=== PATIENT | female | born 1995 | race Caucasian/White ===

== ENCOUNTER 2018-01-20 15:14 | Inpatient (IN) ==
[2018-01-20] MEDS ORDERED: ZALEPLON 5 MG CAPSULE PO PRN (19:21)
[2018-01-20] MEDS ORDERED: ONDANSETRON 4 MG/2 ML VIAL IV PRN (19:21)
[2018-01-20] MEDS ORDERED: MORPHINE 4 MG/1 ML VIAL IV PRN (19:21)
[2018-01-20] MEDS ORDERED: ACETAMINOPHEN 325 MG TABLET PO PRN (19:21)
[2018-01-20] MEDS ORDERED: PROMETHAZINE 25 MG/1 ML VIAL IM PRN (19:21)
[2018-01-20] MEDS ORDERED: DEXTROSE 5% NACL 0.45% 1,000 ML IV SCH (19:30)
[2018-01-20] MEDS ORDERED: POTASSIUM CHLORIDE 20 MEQ TABLET PO ONE (19:41)
[2018-01-20] MEDS: metroNIDAZOLE INJ 500 MG in PREMIX 1 EACH IV SCH (20:00)
[2018-01-20] MEDS ORDERED: DEXT 5% LACT RING KCL 20 MEQ 20 MEQ/1,000 ML BAG IV SCH (20:00)
[2018-01-20] MEDS: methylPREDNISolone SOD SUC 40 MG/1 ML VIAL IV SCH (20:00)
[2018-01-20] MEDS ORDERED: ENOXAPARIN 40 MG/0.4 ML SYRINGE SUBCUT SCH (21:00)
[2018-01-20] MEDS: MESALAMINE ENEMA 4 GM/60 ML BOTTLE RECTAL SCH (22:56)
[2018-01-21] MEDS: LACTATED RINGERS 1,000 ML IV SCH ×5 (02:26→23:30)
[2018-01-21] MEDS: methylPREDNISolone SOD SUC 40 MG/1 ML VIAL IV SCH ×5 (02:27→20:42)
[2018-01-21 04:52] LABS: Basophils % 0.3 % (0.0-0.8); Hematocrit 31.5 VOL% (35.7-47.0); Hemoglobin 10.1 GM/DL (12.0-16.0); Immature Granulocytes % 0.5 %; Immature Granulocytes Absolute 0.07 #; Lymphocytes # 0.7 10*3/uL (1.4-4.0); Lymphocytes % 4.9 % (21.3-54.2); Mean Corpuscular HGB Conc 32.1 GM/DL (32-36); Mean Corpuscular Hemoglobin 24 PG (27-34); Mean Corpuscular Volume 75.5 FL (87-102); Mean Platelet Volume 12.7 FL (9.6-12.0); Monocytes # 0.6 10*3/uL (0.11-0.8); Monocytes % 4.4 % (1.7-12.7); Neutrophils # 12.6 10*3/uL (1.4-7.4); Neutrophils % 89.9 % (38.7-73.9); Platelet Count 322 T/CUMM (130-400); Red Blood Count 4.17 MC/CUMM (3.8-5.5); Red Cell Distribution Width 14.9 % (9.3-17.3)
[2018-01-21] MEDS: metroNIDAZOLE INJ 500 MG in PREMIX 1 EACH IV SCH ×3 (05:00→20:41)
[2018-01-21 05:28] LABS: Albumin 2.6 G/DL (3.4-5.0); Bilirubin,Total 0.5 MG/DL (0.2-1.0); Calcium 8.8 MG/DL (8.5-10.1); Osmolality,Calculated 280.3 MOS/KG (273-304); Potassium 4.3 MMOL/L (3.5-5.1); Total Protein 6.3 G/DL (6.4-8.3)
[2018-01-21 05:32] LABS: Band Neutrophils 10 % (0-10); Lymphocytes 6 % (20-55); Segmented Neutrophils 82 % (50-85); Total Cells Counted 100
[2018-01-21 05:34] LABS: Polychromasia Slight
[2018-01-21 05:36] LABS: Hypochromasia Slight
[2018-01-21 05:37] LABS: Platelet Estimate Adequate
[2018-01-21] MEDS: LEVOFLOXACIN INJ 750 MG in PREMIX 1 EACH IV SCH (08:16)
[2018-01-21] MEDS: PANTOPRAZOLE 40 MG TABLET PO SCH (08:16)
[2018-01-21] MEDS: MESALAMINE ENEMA 4 GM/60 ML BOTTLE RECTAL SCH (08:17)
[2018-01-21] MEDS ORDERED: WITCH HAZEL PADS 100/JAR TOP PRN (12:52)
[2018-01-21 14:23] LABS: % Iron Saturation 6.9 % (18-50); Ferritin 37.1 ng/ml (8-252)
[2018-01-21] MEDS: MESALAMINE 800 MG TABLET PO SCH ×3 (15:48→20:45)
[2018-01-22] MEDS: methylPREDNISolone SOD SUC 40 MG/1 ML VIAL IV SCH ×4 (02:30→20:30)
[2018-01-22] MEDS: metroNIDAZOLE INJ 500 MG in PREMIX 1 EACH IV SCH ×3 (03:53→20:32)
[2018-01-22 03:57] LABS: Basophils # 0.1 10*3/uL (0.0-0.2); Basophils % 0.2 % (0.0-0.8); Hematocrit 28.4 VOL% (35.7-47.0); Hemoglobin 9.2 GM/DL (12.0-16.0); Immature Granulocytes % 0.9 %; Immature Granulocytes Absolute 0.21 #; Lymphocytes # 1.1 10*3/uL (1.4-4.0); Lymphocytes % 4.8 % (21.3-54.2); Mean Corpuscular HGB Conc 32.4 GM/DL (32-36); Mean Corpuscular Hemoglobin 25 PG (27-34); Mean Corpuscular Volume 75.9 FL (87-102); Mean Platelet Volume 13.4 FL (9.6-12.0); Monocytes # 1.7 10*3/uL (0.11-0.8); Monocytes % 7.3 % (1.7-12.7); Neutrophils # 20.2 10*3/uL (1.4-7.4); Neutrophils % 86.8 % (38.7-73.9); Platelet Count 334 T/CUMM (130-400); Red Blood Count 3.74 MC/CUMM (3.8-5.5); Red Cell Distribution Width 15.2 % (9.3-17.3); White Blood Count 23.3 T/CUMM (4-12)
[2018-01-22 04:15] LABS: Alanine Aminotransferase 12 U/L (13-56); Albumin 2.3 G/DL (3.4-5.0); Alkaline Phosphatase 105 U/L (45-117); Aspartate Amino Transferase 9 U/L (0-37); Bilirubin,Total < 0.39 MG/DL (0.2-1.0); Blood Urea Nitrogen 8 MG/DL (7-18); Calcium 8.2 MG/DL (8.5-10.1); Glucose 113 MG/DL (74-106); Osmolality,Calculated 281.1 MOS/KG (273-304); Potassium 3.8 MMOL/L (3.5-5.1); Sodium 142 MMOL/L (136-145); Total Protein 5.6 G/DL (6.4-8.3)
[2018-01-22 06:44] LABS: Band Neutrophils 4 % (0-10); Lymphocytes 4 % (20-55); Platelet Estimate Normal; Segmented Neutrophils 87 % (50-85); Total Cells Counted 100
[2018-01-22] MEDS: LACTATED RINGERS 1,000 ML IV SCH ×3 (08:42→19:35)
[2018-01-22] MEDS: LEVOFLOXACIN INJ 750 MG in PREMIX 1 EACH IV SCH (08:44)
[2018-01-22] MEDS: MESALAMINE 800 MG TABLET PO SCH ×3 (08:44→20:34)
[2018-01-22] MEDS: PANTOPRAZOLE 40 MG TABLET PO SCH (08:44)
[2018-01-23] MEDS: methylPREDNISolone SOD SUC 40 MG/1 ML VIAL IV SCH (01:46)
[2018-01-23] MEDS: metroNIDAZOLE INJ 500 MG in PREMIX 1 EACH IV SCH (04:19)
[2018-01-23] MEDS: LACTATED RINGERS 1,000 ML IV SCH ×3 (04:22→20:57)
[2018-01-23 07:01] LABS: Albumin 2.6 G/DL (3.4-5.0); Bilirubin,Total 0.4 MG/DL (0.2-1.0); Calcium 8.7 MG/DL (8.5-10.1); Osmolality,Calculated 281.1 MOS/KG (273-304); Total Protein 6.2 G/DL (6.4-8.3)
[2018-01-23 07:03] LABS: Basophils # 0.1 10*3/uL (0.0-0.2); Basophils % 0.4 % (0.0-0.8); Immature Granulocytes % 2.9 %; Immature Granulocytes Absolute 0.56 #; Lymphocytes # 1.4 10*3/uL (1.4-4.0); Lymphocytes % 7.1 % (21.3-54.2); Mean Corpuscular HGB Conc 32.3 GM/DL (32-36); Mean Corpuscular Hemoglobin 24 PG (27-34); Mean Corpuscular Volume 75.6 FL (87-102); Mean Platelet Volume 13.5 FL (9.6-12.0); Monocytes # 1.2 10*3/uL (0.11-0.8); Neutrophils # 16.1 10*3/uL (1.4-7.4); Neutrophils % 83.6 % (38.7-73.9); Platelet Count 384 T/CUMM (130-400); Red Cell Distribution Width 15.3 % (9.3-17.3); White Blood Count 19.2 T/CUMM (4-12)
[2018-01-23 07:27] LABS: Band Neutrophils 4 % (0-10); Hypochromasia 1+; Lymphocytes 7 % (20-55); Platelet Estimate Adequate; Segmented Neutrophils 84 % (50-85); Target Cells Slight; Total Cells Counted 100
[2018-01-23] MEDS ORDERED: predniSONE 50 MG TABLET ONE (08:09)
[2018-01-23] MEDS ORDERED: predniSONE 10 MG TABLET ONE (08:10)
[2018-01-23] MEDS: CIPROFLOXACIN 500 MG TABLET PO SCH ×2 (08:24→20:55)
[2018-01-23] MEDS: PANTOPRAZOLE 40 MG TABLET PO SCH (08:24)
[2018-01-23] MEDS: MESALAMINE 800 MG TABLET PO SCH ×3 (08:24→20:55)
[2018-01-23] MEDS: predniSONE 20 MG TABLET PO SCH (08:25)
[2018-01-23] MEDS: metroNIDAZOLE 500 MG TABLET PO SCH ×2 (11:53→20:55)
[2018-01-24] MEDS: LACTATED RINGERS 1,000 ML IV SCH (04:57)
[2018-01-24] MEDS: metroNIDAZOLE 500 MG TABLET PO SCH (05:50)
[2018-01-24 07:06] LABS: Basophils # 0.1 10*3/uL (0.0-0.2); Basophils % 0.5 % (0.0-0.8); Eosinophils # 0.1 10*3/uL (0.0-0.87); Eosinophils % 0.7 % (0.00-10.9); Hematocrit 32.2 VOL% (35.7-47.0); Hemoglobin 10.5 GM/DL (12.0-16.0); Immature Granulocytes % 4.1 %; Immature Granulocytes Absolute 0.76 #; Lymphocytes # 4.7 10*3/uL (1.4-4.0); Lymphocytes % 25.5 % (21.3-54.2); Mean Corpuscular HGB Conc 32.6 GM/DL (32-36); Mean Corpuscular Hemoglobin 24 PG (27-34); Mean Corpuscular Volume 74.2 FL (87-102); Mean Platelet Volume 12.9 FL (9.6-12.0); Monocytes # 1.7 10*3/uL (0.11-0.8); Monocytes % 9.2 % (1.7-12.7); NRBC # 0.02 10*3/uL; Neutrophils # 11.1 10*3/uL (1.4-7.4); Platelet Count 439 T/CUMM (130-400); Red Blood Count 4.34 MC/CUMM (3.8-5.5); Red Cell Distribution Width 15.5 % (9.3-17.3); White Blood Count 18.5 T/CUMM (4-12)
[2018-01-24 07:08] VITALS: BP 117/58
[2018-01-24 07:28] LABS: Albumin 2.5 G/DL (3.4-5.0); Bilirubin,Total 0.6 MG/DL (0.2-1.0); Calcium 8.2 MG/DL (8.5-10.1); Osmolality,Calculated 277.3 MOS/KG (273-304); Potassium 3.6 MMOL/L (3.5-5.1); Total Protein 5.8 G/DL (6.4-8.3)
[2018-01-24 07:37] LABS: Eosinophils 1 % (0-10); Giant Platelets Few; Hypochromasia 1+; Lymphocytes 26 % (20-55); Platelet Estimate Adequate; Segmented Neutrophils 61 % (50-85); Total Cells Counted 100
[2018-01-24] MEDS: CIPROFLOXACIN 500 MG TABLET PO SCH (09:29)
[2018-01-24] MEDS: predniSONE 20 MG TABLET PO SCH (09:29)
[2018-01-24] MEDS: PANTOPRAZOLE 40 MG TABLET PO SCH (09:29)
[2018-01-24] MEDS: MESALAMINE 800 MG TABLET PO SCH (09:29)
[2018-01-25 17:35] LABS: Myeloperoxidase Antibody < 0.2 U
== END 2018-01-24 12:00 | disposition home or self-care (01) | DRG 387 ==
LOC: SUATTDRO 17:49 → N.ICU 17:49 → SUATTDRO 19:22 → N.5E 01-21 13:54
PROVIDERS: ADMIT Internal Medicine; ATTEND Family Medicine